=== PATIENT | female | born 1975 | race African-American/Black ===

== ENCOUNTER → 2016-05-11 | Outpatient (REF) | payer OTHER ==
[~2016-05-11] MED LIST: DARV100T; FERR325T; HYDR25TA6; LISI40TA; PRIL20CA; TYLENOL #3
[2016-05-11 14:25] LABS: ALBUMIN 3.3 GM/DL (3.2-5.2); ALKALINE PHOSPHATASE 121 U/L (45-117); ALT/SGPT 34 U/L (12-78); ANION GAP 9 MEQ/L (8-16); AST/SGOT 25 U/L (15-37); BILIRUBIN,TOTAL 0.8 MG/DL (0.2-1.0); BLOOD UREA NITROGEN 13 MG/DL (7-18); CALCIUM LEVEL 8.9 MG/DL (8.5-10.1); CARBON DIOXIDE LEVEL 28 MEQ/L (21-32); CHLORIDE LEVEL 106 MEQ/L (98-107); CHOLESTEROL LEVEL 175 MG/DL (<200); CREATININE FOR GFR 0.75 MG/DL (0.55-1.02); FREE T4 0.99 NG/DL (0.76-1.46); GLOMERULAR FILTRATION RATE > 60.0 (>60); GLUCOSE, FASTING 82 MG/DL (70-105); POTASSIUM SERUM 4.3 MEQ/L (3.5-5.1); SODIUM LEVEL 143 MEQ/L (136-145); TOTAL PROTEIN 6.6 GM/DL (6.4-8.2); TRIGLYCERIDES LEVEL 85 MG/DL (<150)
== END | disposition home or self-care (01) ==
LOC: M SFHCPLAZ 10:43
PROVIDERS: ATTEND Nurse Practitioner Family
DX: I10 Essential (primary) hypertension (principal); F32.9 Major depressive disorder, single episode, unspecified; E78.2 Mixed hyperlipidemia; E55.9 Vitamin D deficiency, unspecified

== ENCOUNTER → 2016-07-07 | Outpatient (CLI) | payer OTHER ==
--- NOTE | 2016-07-09 16:18 | SLEEPHOME ---
DATE OF PROCEDURE: 07/07/2016 REFERRING PHYSICIAN: Tameka Wong NP INTERPRETATION: Diagnostic home sleep testing was performed due to concern for the obstructive sleep apnea syndrome in this patient with a prior history of the disease. For testing, a NOX-T3 respiratory monitoring device was used. Continuous record was made of pulse, oxygen saturation, air flow, chest and abdominal strain and body position. 9 hours and 59 minutes of data were reviewed. There were 9 hours and 25 minutes marked as time in bed. During the interval marked time in bed, there were 65 respiratory events identified of 10 seconds in duration or greater for a respiratory event index of 6.9. The events were more frequently mixed and central. More than 50% of the events were in this category. The patient's baseline pulse rate was 61 beats per minute. Pulse rate ranged 51 to 89. Oxygen saturation at baseline was 96%. Saturations fell to a low of 88%. Testing was performed in the supine and nonsupine positions. The events were exclusive to the supine position, however, minimal time was spent out of that position. IMPRESSION: Abnormal home sleep testing with repetitive respiratory events and oxygen desaturations to 88% with a respiratory event index of 6.9, is consistent with obstructive sleep apnea syndrome. RECOMMENDATION: Given the patient's symptoms and the above findings referral back to the sleep disorder center for pressure therapy is recommended. Caution will need to be expressed during titration due to the significant frequency of central events, which could represent complex obstructive sleep apnea syndrome and require bilevel therapy and a backup rate.
== END ==
LOC: M SLEEP HO 10:12
PROVIDERS: ATTEND Nurse Practitioner Adult Health
DX: G47.9 Sleep disorder, unspecified (principal)

== ENCOUNTER → 2016-08-06 | Outpatient (CLI) | payer OTHER ==
--- NOTE | 2016-08-10 13:33 | SLEEPCENT ---
DATE OF PROCEDURE: 08/06/2016 REQUESTING PROVIDER: uLz Wong NP INTERPRETATION: Nocturnal polysomnography was performed for the titration of pressure therapy in this patient with obstructive sleep apnea syndrome, established on clinical grounds and supported by home testing, revealing a respiratory event index of 6.9. For testing, the patient was fit with a ResMed Quattro full face mask of small size, 4 cm of water pressure were applied to the circuit and the lights were extinguished. 7 hours and 29 minutes of data were reviewed. There were 384 minutes of sleep identified. Sleep latency was mildly prolonged at 36 minutes. Rapid eye movement (REM) latency was normal at 83 minutes. Sleep architecture was good with three long REM periods appreciated. Overall sleep efficiency was 87%. The patient's electrocardiogram (EKG) showed a sinus rhythm with an average heart rate of 64 beats per minute. Electroencephalogram (EEG) showed normal waveforms for awake and sleep. Respiratory events were found best palliated with a CPAP to a pressure of +7. CPAP tolerance was good. The remaining measures of sleep physiology were normal. IMPRESSION: 1. Obstructive sleep apnea syndrome (G47.33). RECOMMENDATIONS: Nightly use of pressure therapy at 7 cm of water.
== END ==
LOC: M SLEEP 20:07
PROVIDERS: ATTEND Nurse Practitioner Adult Health
DX: G47.33 Obstructive sleep apnea (adult) (pediatric) (principal)

== ENCOUNTER → 2016-12-12 | Outpatient (REF) | payer OTHER ==
[~2016-12-12] MED LIST changes: +ALBU17IN; +BISO5TAB5; +CIPR500T3; +LOSA100T36; +SERT-138
== END ==
LOC: M LAB REF 09:46
PROVIDERS: ATTEND Physician Assistant
DX: N39.0 Urinary tract infection, site not specified (principal)

== ENCOUNTER 2016-12-13 17:31 | Emergency (ER) | payer OTHER ==
[~2016-12-13] VITALS: Ht 157.5 cm; Wt 89.0 kg
[2016-12-13 17:31] VITALS: BP 163/89
[~2016-12-13 17:31] MED LIST changes: -ALBU17IN; -BISO5TAB5; -CIPR500T3; -LOSA100T36; -SERT-138
[2016-12-13] MEDS ORDERED: CIPR500T3 (17:50)
[2016-12-13] MEDS ORDERED: SERT-138 (17:50)
[2016-12-13] MEDS ORDERED: BISO5TAB5 (17:50)
[2016-12-13] MEDS ORDERED: LOSA100T36 (17:50)
[2016-12-13] MEDS ORDERED: ALBU17IN (17:50)
--- NOTE | 2016-12-14 10:38 | ECGEPIP ---
Stationary ECG Study [facility] - ED Test Date: 2016-12-13 Pat Name: FEDERICA BULLARD Department: Room: - Gender: F Relief Captain: ct : 1975 Requested By: George Whitaker Order Number: [id number] Reading MD: Chata Swartz Measurements Intervals [place] Rate: 78 P: 69 OR: 187 QRS: 53 QRSD: 86 T: 3 QT: 349 QTc: 400 Interpretive Statements SINUS RHYTHM POSSIBLE LEFT ATRIAL ENLARGEMENT NSTTW ABNORMALITY SIMILAR 05/06/13 Electronically Signed On 12-14-2016 10:38:26 EDT by Chata Swartz
== END 2016-12-13 21:08 | disposition left against medical advice (07) ==
LOC: M ED 17:31
DX: R07.9 Chest pain, unspecified (principal); Z53.29 Procedure and treatment not carried out because of patient's decision for other reasons

== ENCOUNTER → 2016-12-23 | Outpatient (REF) | payer OTHER ==
[~2016-12-23] MED LIST changes: +ALBU17IN; +BISO5TAB5; +CIPR500T3; +LOSA100T36; +SERT-138
[2016-12-24 13:33] LABS: BASO % 0.6 % (0.0-1.0); EOS # 0.1 K/mm3 (0.0-0.50); EOS % 1.9 % (0.0-3.0); LARGE UNSTAINED CELL # 0.1 K/mm3 (0.0-0.4); LARGE UNSTAINED CELL % 1.5 % (0.0-4.0); LYMPH # 1.3 K/mm3 (1.5-4.5); LYMPH % 25.2 % (24.0-44.0); MEAN CORPUSCULAR HEMOGLOBIN 26.2 pg (27.0-33.0); MEAN CORPUSCULAR HGB CONC 32.4 g/dl (32.0-36.5); MEAN CORPUSCULAR VOLUME 80.9 fl (80.0-96.0); MONO # 0.2 K/mm3 (0.0-0.8); MONO % 3.9 % (0.0-5.0); NEUTROPHILS # 3.5 K/mm3 (1.8-7.7); NEUTROPHILS % 66.8 % (36.0-66.0); PLATELET COUNT, AUTOMATED 215 k/mm3 (150-450); RED CELL DISTRIBUTION WIDTH 12.8 % (11.5-14.5); WHITE BLOOD COUNT 5.2 K/mm3 (4.0-10.0)
[2016-12-24 13:59] LABS: ALBUMIN 3.3 GM/DL (3.2-5.2); ALBUMIN/GLOBULIN RATIO 0.89 (1.00-1.93); ALKALINE PHOSPHATASE 175 U/L (45-117); ALT/SGPT 222 U/L (12-78); ANION GAP 6 MEQ/L (8-16); AST/SGOT 129 U/L (15-37); BILIRUBIN,TOTAL 0.8 MG/DL (0.2-1.0); BLOOD UREA NITROGEN 15 MG/DL (7-18); CALCIUM LEVEL 9.1 MG/DL (8.5-10.1); CARBON DIOXIDE LEVEL 30 MEQ/L (21-32); CHLORIDE LEVEL 106 MEQ/L (98-107); CREATININE FOR GFR 0.84 MG/DL (0.55-1.02); GLOMERULAR FILTRATION RATE > 60.0 (>58); GLUCOSE, FASTING 69 MG/DL (70-105); POTASSIUM SERUM 4.1 MEQ/L (3.5-5.1); SODIUM LEVEL 142 MEQ/L (136-145)
[2016-12-24 14:38] LABS: ERYTHROCYTE SEDIMENTATION RATE 31 mm/hr (0-20)
== END ==
LOC: M SFHCPLAZ 08:57
PROVIDERS: ATTEND Nurse Practitioner Family
DX: R05 Cough (principal); M94.0 Chondrocostal junction syndrome [Tietze]

== ENCOUNTER → 2016-12-24 | Outpatient (CLI) | payer OTHER ==
--- NOTE | 2016-12-24 12:55 | REP ---
PA and lateral chest: Comparisons 08/09/2012. The lung onofre are clear. Cardiac size is upper normal. The masoud, mediastinum, and bony thorax are unremarkable. Impression: Essentially negative chest. There is no interval change. Signed by Zane Sanchez MD 12/24/2016 12:47 P
== END ==
LOC: M SMT 11:01
PROVIDERS: ATTEND Nurse Practitioner Family
DX: R05 Cough (principal)

== ENCOUNTER → 2016-12-28 | Outpatient (REF) | payer OTHER ==
[2016-12-28 11:45] LABS: ALBUMIN 3.3 GM/DL (3.2-5.2); ALBUMIN/GLOBULIN RATIO 0.89 (1.00-1.93); ALKALINE PHOSPHATASE 178 U/L (45-117); ALT/SGPT 151 U/L (12-78); AST/SGOT 67 U/L (15-37); BILIRUBIN,DIRECT 0.1 MG/DL (0.0-0.2); BILIRUBIN,TOTAL 0.6 MG/DL (0.2-1.0); FREE T4 1.04 NG/DL (0.76-1.46)
[2016-12-28 12:07] LABS: VITAMIN B12 LEVEL 994 PG/ML
[2016-12-28 12:08] LABS: FOLATE 5.1 NG/ML
[2016-12-30 00:06] LABS: Lyme Disease IgG/IgM Antibodie <0.91 ISR (0.00-0.90); Lyme Disease IgM Ab Quantitati <0.80 index (0.00-0.79)
== END ==
LOC: M SFHCPLAZ 09:01
PROVIDERS: ATTEND Nurse Practitioner Family
DX: E66.9 Obesity, unspecified (principal); R79.89 Other specified abnormal findings of blood chemistry; W57.XXXS Bitten or stung by nonvenomous insect and other nonvenomous arthropods, sequela; Z98.84 Bariatric surgery status; Y99.9 Unspecified external cause status

== ENCOUNTER → 2017-02-02 | Outpatient (CLI) | payer OTHER ==
--- NOTE | 2017-02-03 09:18 | REP ---
Clinical: Elevated liver function tests. Technique: Iniguez scale ultrasound using curved array transducer. Findings: The liver and pancreas are normal in contour, size, and echogenicity without focal hepatic or pancreatic lesions identified. The gallbladder is normal without gallstones, wall thickening or pericholecystic fluid. No biliary ductal dilatation is appreciated, and the common bile duct measures 3.4 mm diameter. The right kidney is normal in reniform shape without hydronephrosis and measures 9.7 x 3.6 x 4.0 cm. No ascites. Visualized portions of the abdominal aorta normal. Impression: Normal right upper quadrant and gallbladder abdominal ultrasound.
== END ==
LOC: M WHC 08:08
PROVIDERS: ATTEND Nurse Practitioner Family
DX: R79.89 Other specified abnormal findings of blood chemistry (principal)

== ENCOUNTER → 2017-02-02 | Outpatient (REF) | payer OTHER ==
[2017-02-02 12:26] LABS: ALBUMIN 3.4 GM/DL (3.2-5.2); ALBUMIN/GLOBULIN RATIO 0.89 (1.00-1.93); ALKALINE PHOSPHATASE 117 U/L (45-117); ALT/SGPT 24 U/L (12-78); ANION GAP 7 MEQ/L (8-16); AST/SGOT 13 U/L (15-37); BILIRUBIN,TOTAL 0.8 MG/DL (0.2-1.0); BLOOD UREA NITROGEN 14 MG/DL (7-18); CALCIUM LEVEL 9.4 MG/DL (8.5-10.1); CARBON DIOXIDE LEVEL 28 MEQ/L (21-32); CHLORIDE LEVEL 104 MEQ/L (98-107); CREATININE FOR GFR 0.89 MG/DL (0.55-1.02); GLOMERULAR FILTRATION RATE > 60.0 (>58); GLUCOSE, FASTING 91 MG/DL (70-105); POTASSIUM SERUM 4.1 MEQ/L (3.5-5.1); SODIUM LEVEL 139 MEQ/L (136-145); TOTAL PROTEIN 7.2 GM/DL (6.4-8.2)
== END ==
LOC: M SFHCPLAZ 08:44
PROVIDERS: ATTEND Nurse Practitioner Family
DX: R79.89 Other specified abnormal findings of blood chemistry (principal)